=== PATIENT | female | born 1960 | race Hispanic/Latino ===

== ENCOUNTER 2018-05-17 01:37 | Emergency (ER) | payer MEDICARE, MEDICAID ==
[2018-05-17 01:58] VITALS: BP 133/76; PULSE 82; RESP 17; TEMP 98.9; O2SAT 98
--- NOTE | 2018-05-17 02:28 | ED PDOC ---
HPI: Back Time Seen by Provider: 05/17/18 01:49 Chief Complaint (Nursing): Back Pain Chief Complaint (Provider): back pain History Per: Patient History/Exam Limitations: no limitations Onset/Duration Of Symptoms: Mins Current Symptoms Are (Timing): Still Present Exacerbating Factor(s): Turning, Movement Additional Complaint(s): 57 y/o female history of multiple sclerosis (not on medications currently), hypertension, chronic pain brought in by EMS for evaluation of low back pain, onset prior to arrival. 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 Patient reports pain to low back, and left knee. Patient slurring speech and nodding out during exam; states she took one xanax before coming here. Patient denies head injury, LOC, nause/vomiting, numbness/weakness lower extremities, bowel/bladder incontinence Past Medical History Reviewed: Historical Data, Nursing Documentation, Vital Signs Vital Signs: Last Vital Signs Temp 98.9 F 05/17/18 01:55 Pulse 82 05/17/18 01:55 Resp 17 05/17/18 01:55 BP 133/76 05/17/18 01:55 Pulse Ox 98 05/17/18 01:55 - Medical History PMH: Multiple Sclerosis - Surgical History Other surgeries: left hip replacement - Family History Family History: States: No Known Family Hx - Living Arrangements Living Arrangements: With Family - Allergies Allergies/Adverse Reactions: Allergies Allergy/AdvReac Type Severity Reaction Status Date / Time glatiramer (copolymer 1) Allergy Mild RASH Verified 05/17/18 01:58 [From Copaxone] Review of Systems ROS Statement: Except As Marked, All Systems Reviewed And Found Negative Musculoskeletal: Positive for: Back Pain, Leg Pain (left knee) Physical Exam - Reviewed Nursing Documentation Reviewed: Yes Vital Signs Reviewed: Yes - Physical Exam Appears: Positive for: Well, Non-toxic, No Acute Distress Head Exam: Positive for: ATRAUMATIC, NORMAL INSPECTION, NORMOCEPHALIC Skin: Positive for: Normal Color Eye Exam: Positive for: Normal appearance ENT: Positive for: Normal ENT Inspection Cardiovascular/Chest: Positive for: Regular Rate, Rhythm Respiratory: Positive for: Normal Breath Sounds Gastrointestinal/Abdominal: Positive for: Normal Exam Back: Positive for: Vertebral Tenderness (lower lspine tenderness; no bony deformity), Muscle Spasm (b/l lspine paravertebral tenderness). Negative for: L CVA Tenderness, R CVA Tenderness, Decreased ROM Extremity: Positive for: Tenderness (anterior left knee tender to palpate; pain upon flexion. Tender to palpate left hip without leg shortening, deformity, edema), Other (+left foot drop) Neurologic/Psych: Positive for: Alert, Oriented (x3) - ECG O2 Sat by Pulse Oximetry: 98 - Progress ED Course And Treament: Patient asked what pain meds she will be receiving and after hearing the name, she replies "Toradol doesn't do anything for me" Patient looked up in [facility], on 05/15/18 patient was prescribed: Oxycodone 30mg 180 tablets (30 day supply) Morphine sulfate ER 30mg 60 tablets (30 day supply) Alprazolam 2mg 120 tablets (30 day supply) Zolpidem 10mg 30 tablets (30 day supply) Patient educated on narcotic policy, advised no narcotics will be given at this time. xray's ordered EXAM: XR Left Hip with Pelvis when Performed, 2 or 3 Views EXAM DATE/TIME: 05/17/2018 2:18 AM CLINICAL HISTORY: 57 years old, female; Injury or trauma; Fall; Initial encounter; Blunt trauma (contusions or hematomas); Left; Hip; Prior surgery; Surgery date: 6+ months; Surgery type: Hip surgery; Additional info: Fall, h/o replacement TECHNIQUE: XR Left hip with pelvis when performed, 2 or 3 views COMPARISON: No relevant prior studies available. FINDINGS: Bones/joints: Left hip arthroplasty without evidence of hardware failure. Mild degenerative disease of the right hip. No acute fracture or malalignment. Soft tissues: Normal. IMPRESSION: No acute findings. EXAM: XR Lumbar Spine, 2 or 3 Views EXAM DATE/TIME: 05/17/2018 2:18 AM CLINICAL HISTORY: 57 years old, female; Pain; Low back pain; Additional info: Fall, pain TECHNIQUE: XR of the lumbar spine, 2 or 3 views. COMPARISON: No relevant prior studies available. FINDINGS: Vertebrae: Multilevel mild vertebral body endplate concavities, most consistent with chronic insufficiency fractures. Vertebral body heights are maintained. No fracture or acute listhesis. Disc spaces: Mild degenerative disc space narrowing at L1-L2 and L2-L3. Soft tissues: Unremarkable. Other findings: Postoperative changes in the right upper quadrant. IMPRESSION: Multilevel mild vertebral body endplate concavities, most consistent with chronic insufficiency fractures. No evidence of acuity but this would be better assessed with MRI or CT if needed. EXAM: XR Left Knee, 3 Views EXAM DATE/TIME: 05/17/2018 2:18 AM CLINICAL HISTORY: 57 years old, female; Pain; Knee; Left; Additional info: Fall, pain TECHNIQUE: XR Left knee 3 views. COMPARISON: No relevant prior studies available. FINDINGS: Bones/joints: No joint effusion seen. No acute fracture or malalignment. Soft tissues: Normal. IMPRESSION: No acute findings. 3:30 Patient snoring; no distress 4:15 Patient educated on xray findings, RADHA wrap applied to left knee Patient requesting something for pain; will give Toradol as planned (patient sleeping every time nurse went to administer medication) 5:15 Patient awake, alert, oriented x3. Ambulating at baseline with walker. Patient educated on findings, will d/c home to f/up PMD/ortho (patient states she has ortho referral already) Patient requires no further intervention in the ED and is stable for discharge at this time Disposition - Clinical Impression Clinical Impression: Low back pain, Left knee pain, Chronic left hip pain - Patient ED Disposition Is Patient to be Admitted: No Counseled Patient/Family Regarding: Studies Performed, Diagnosis, Need For Followup - Disposition Disposition: Routine/Home Disposition Time: 05:15 Condition: IMPROVED Instructions: Low Back Pain in Adults, Chronic Pain, Knee Pain Forms: WAVE ([employer]) ([place])
--- NOTE | 2018-05-17 08:09 | RAD ---
Date of service: 05/17/2018 PROCEDURE: Left Knee Radiographs. HISTORY: Pain. COMPARISON: None. FINDINGS: BONES: Normal. No fracture. JOINTS: Mild tricompartmental joint space narrowing suspect. No prominent spurring seen. JOINT EFFUSION: None. OTHER FINDINGS: None. IMPRESSION: Mild tricompartmental joint space narrowing suspect. No prominent spurring seen. No fracture or lytic lesion noted
--- NOTE | 2018-05-17 08:11 | RAD ---
Date of service: 05/17/2018 PROCEDURE: Radiographs of the Lumbar Spine. HISTORY: fall, pain COMPARISON: No prior. FINDINGS: BONES: Normal alignment. No listhesis. No fracture. Anterior spondylosis and subchondral sclerosis most pronounced at L2-3. DISC SPACES: Narrowed L2-3 and L1-2 disc spaces OTHER FINDINGS: Cholecystectomy clips. Partially visualized left hip prosthesis. Right hip arthrosis. Stool retention Atherosclerotic vascular calcifications present. IMPRESSION: No fracture or subluxation. Other findings as above.
--- NOTE | 2018-05-17 08:14 | RAD ---
Date of service: 05/17/2018 PROCEDURE: HISTORY: fall, h/o replacement COMPARISON: None TECHNIQUE: AP pelvis and frog's leg view. FINDINGS: Left total hip arthroplasty status noted. Acetabular and femoral stems well positioned. No fracture or gross hardware failure noted.. Right hip arthrosis. Stool retention IMPRESSION: No fracture noted. Other findings as above.
== END 2018-05-17 06:30 | disposition home or self-care (01) ==
LOC: H.ER 01:37
DX: M54.5 Low back pain (principal); G35 Multiple sclerosis; G89.29 Other chronic pain; M21.372 Foot drop, left foot; Z96.642 Presence of left artificial hip joint
CPT/HCPCS: 72100; 73502; 73562; 96372; 99283; J1885